=== PATIENT | male | born 1955 | race Caucasian/White ===

== ENCOUNTER 2017-07-04 10:58 | Inpatient (IN) | payer BC ==
[2017-07-04] MEDS ORDERED: Sodium Chloride 0.9% 10 ML Syringe FLUSH PRN ×3 (12:25→17:36)
[2017-07-04] MEDS ORDERED: Ondansetron 4 MG/2 ML SDV IVPUSH ONE (12:27)
[2017-07-04] MEDS ORDERED: Sodium Chloride 0.9% 1,000 ML IV SCH ×2 (12:30→16:15)
--- NOTE | 2017-07-04 12:30 | EDM.PDOC ---
ED HPI GENERAL MEDICAL PROBLEM - General Chief Complaint: Respiratory Problem Stated Complaint: ILLNESS; FEVER; COUGH Time Seen by Provider: 07/04/17 12:10 Source of Information: Reports: Patient, Family History Limitations: Reports: No Limitations - History of Present Illness INITIAL COMMENTS - FREE TEXT/NARRATIVE: Benito presents today with complaints of weakness, nausea, joint pain, cough, SOB with cough since April of this year. He also reports a sore to his left chest that will not go away for many months and continues to worsen. 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 He reports he went into an urgent care clinic and was provided Azithromycin on . He later went into another clinic for continued symptoms and was given Levaquin and prednisone on 05/30/2017. He took medications as directed, completing doses. Benito does not have a primary care provider. Generalized Pain Score (Numeric/FACES): 7 - Related Data Allergies Allergy/AdvReac Type Severity Reaction Status Date / Time No Known Allergies Allergy Verified 07/04/17 11:26 Past Medical History HEENT History: Reports: Allergic Rhinitis, Macular Degeneration - Past Surgical History HEENT Surgical History: Reports: Tonsillectomy Other GI Surgeries/Procedures: HEMORRHOIDS, ANAL FISTULA, CROHN'S Other Musculoskeletal Surgeries/Procedures:: Rhizotomy x 4 to back. Social & Family History - Tobacco Use Smoking Status *Q: Current Every Day Smoker Years of Tobacco use: 20 Packs/Tins Daily: 1 ED ROS GENERAL - Review of Systems Review Of Systems: See Below Constitutional: Reports: Chills, Malaise, Weakness, Fatigue, Decreased Appetite , Weight Loss. Denies: Night Sweats, Diaphoresis, Weight Gain HEENT: Reports: Other (sinus congestion). Denies: Ear Pain, Throat Pain Respiratory: Reports: Wheezing, Cough, Sputum, Other (Shortness of breath with cough. ). Denies: Pleuritic Chest Pain, Hemoptysis Cardiovascular: Reports: Dyspnea on Exertion. Denies: Chest Pain, Blood Pressure Problem, Edema, Lightheadedness, Palpitations, PND, Syncope Endocrine: Reports: Fatigue. Denies: Polydypsia, Polyuria GI/Abdominal: Reports: Decreased Appetite, Nausea. Denies: Black Stool, Bloody Stool, Hematemesis, Hematochezia, Vomiting : Reports: No Symptoms Musculoskeletal: Reports: Joint Pain. Denies: Joint Swelling Skin: Reports: Other (Non-healing lesion to upper left chest. ) Neurological: Reports: Weakness. Denies: Headache, Numbness, Paresthesia, Syncope, Tingling, Trouble Speaking, Difficulty Walking, Gait Disturbance Psychiatric: Reports: No Symptoms Hematologic/Lymphatic: Reports: No Symptoms Immunologic: Reports: No Symptoms ED EXAM, GENERAL - Physical Exam Exam: See Below Free Text/Narrative:: Benito is an alert, oriented 62 year old male presenting to the emergency room for continued cough, frothy/white and sometimes green mucus production. He reports SOB with cough with overall weakness, fatigue since April with worsening. Benito also reports non-healing sore to upper left chest for several months. He does use 1ppd cigarettes, denies alcohol and illicit drug use. Exam Limited By: No Limitations General Appearance: Alert, WD/WN, Mild Distress, Cachetic Eye Exam: Bilateral Eye: EOMI, Normal Inspection, PERRL Ears: Normal External Exam, Normal Canal, Hearing Grossly Normal, Normal TMs Ear Exam: Bilateral Ear: Auricle Normal, Canal Normal, TM normal Nose: Normal Inspection, Normal Mucosa, No Blood Throat/Mouth: Normal Inspection, Normal Lips, Normal Gums, Normal Oropharynx, Normal Voice, No Airway Compromise, Other (Slight dryness of mucous membranes) Head: Atraumatic, Normocephalic Neck: Normal Inspection, Supple, Non-Tender, Full Range of Motion. No: Lymphadenopathy (R), Lymphadenopathy (L) Respiratory/Chest: Decreased Breath Sounds, Crackles, Rhonchi, Wheezing. No: Chest Non-Tender, Respiratory Distress, Stridor, Pleural Rub, Accessory Muscle Use, Retractions Cardiovascular: Normal Peripheral Pulses, Regular Rate, Rhythm, No Edema, No Gallop, No Murmur, No Rub Peripheral Pulses: 2+: Radial (L), Radial (R), Dorsalis Pedis (L), Dorsalis Pedis (R) GI/Abdominal: Normal Bowel Sounds, Soft, Non-Tender, No Organomegaly, No Distention, No Mass Back Exam: Normal Inspection, Full Range of Motion. No: CVA Tenderness (R), CVA Tenderness (L) Extremities: Normal Inspection, Normal Range of Motion, Non-Tender, No Pedal Edema, Normal Capillary Refill Neurological: Alert, Oriented, CN II-XII Intact, Normal Cognition, Normal Gait, Normal Reflexes, No Motor/Sensory Deficits Psychiatric: Normal Affect, Normal Mood Skin Exam: Warm, Dry, Intact, Normal Color, Other (With exception of circular lesion to left upper chest with uneven presentation 1.5cm by 2.5 cm oval in shape. Lesion has intermittent spots of bleeding, with defined border. Base of lesion is flesh colored and uneven with raised edge. ) Lymphatic: No Adenopathy EKG INTERPRETATION EKG Date: 07/04/17 Time: 12:44 Rhythm: NSR Wald[place]: Normal P-Wave: Present QRS: Normal ST-T: Normal QT: Normal Course - Vital Signs Last Recorded V/S: Last Vital Signs Temp 37.2 C 07/04/17 15:44 Pulse 62 07/04/17 15:44 Resp 15 07/04/17 15:44 BP 108/70 07/04/17 15:44 Pulse Ox 93 L 07/04/17 15:44 - Orders/Labs/Meds Orders: Active Orders 24 hr Category Date Time Status EKG Documentation Completion [RC] ASDIRECTED Care 07/04/17 12:26 Active Chest 2V [CR] Stat Exams 07/04/17 12:25 Taken Chest w Cont [CT] Stat Exams 07/04/17 13:56 Taken CULTURE BLOOD [BC] Stat Lab 07/04/17 15:55 Received CULTURE BLOOD [BC] Stat Lab 07/04/17 16:08 Received CULTURE FUNGAL [MYC] Stat Lab 07/04/17 16:11 Received CULTURE RESPIRATORY + SMEAR [RM] Stat Lab 07/04/17 15:50 Received CULTURE URINE [RM] Stat Lab 07/04/17 15:59 Received CULTURE-AFB [MREF] Stat Lab 07/04/17 16:11 Received Sodium Chloride 0.9% [Normal Saline] 1,000 ml Med 07/04/17 12:30 Active IV ASDIRECTED Sodium Chloride 0.9% [Normal Saline] 1,000 ml Med 07/04/17 16:15 Active IV ASDIRECTED Sodium Chloride 0.9% [Saline Flush] Med 07/04/17 12:25 Active 10 ml FLUSH ASDIRECTED PRN Saline Lock Insert [OM.PC] Routine Oth 07/04/17 12:25 Ordered EKG 12 Lead [EK] Routine Ther 07/04/17 12:25 Ordered Medication Orders Sodium Chloride (Normal Saline) 1,000 mls @ 500 mls/hr IV ASDIRECTED MICHAEL Last Admin: 07/04/17 12:55 Dose: 500 mls/hr Sodium Chloride (Normal Saline) 1,000 mls @ 250 mls/hr IV ASDIRECTED MICHAEL Last Admin: 07/04/17 16:02 Dose: 250 mls/hr Sodium Chloride (Saline Flush) 10 ml FLUSH ASDIRECTED PRN PRN Reason: Keep Vein Open Last Admin: 07/04/17 12:56 Dose: 10 ml Labs: Laboratory Tests 07/04/17 07/04/17 07/04/17 Range/Units 12:35 12:35 12:35 WBC 14.5 H (4.5-11.0) K/uL RBC 4.20 L (4.30-5.90) M/uL Hgb 12.7 (12.0-15.0) g/dL Hct 37.9 L (40.0-54.0) % MCV 90 (80-98) fL MCH 30 (27-31) pg MCHC 34 (32-36) % Plt Count 330 (150-400) K/uL Neut % (Auto) 83 H (36-66) % Lymph % (Auto) 8 L (24-44) % Gray % (Auto) 9 H (2-6) % Eos % (Auto) 0 L (2-4) % Baso % (Auto) 0 (0-1) % ESR 97 H (0-20) mm/hr Sodium 137 L (140-148) mmol/L Potassium 4.1 (3.6-5.2) mmol/L Chloride 100 (100-108) mmol/L Carbon Dioxide 27 (21-32) mmol/L Anion Gap 14.1 H (5.0-14.0) mmol/L BUN 11 (7-18) mg/dL Creatinine 0.8 (0.8-1.3) mg/dL Est Cr Clr Drug Dosing 93.99 mL/min Estimated GFR (MDRD) > 60 (>60) Glucose 105 (74-106) mg/dL Calcium 8.5 (8.5-10.1) mg/dL Total Bilirubin 0.9 (0.2-1.0) mg/dL AST 49 H (15-37) U/L ALT 61 (12-78) U/L Alkaline Phosphatase 107 (46-116) U/L Troponin I < 0.017 (0.000-0.056) ng/mL C-Reactive Protein 23.81 H (0.0-0.3) mg/dL NT-Pro-B Natriuret Pep 288 H (5-125) pg/mL Total Protein 6.6 (6.4-8.2) g/dL Albumin 2.5 L (3.4-5.0) g/dL Globulin 4.1 H (2.3-3.5) g/dL Albumin/Globulin Ratio 0.6 L (1.2-2.2) TSH, Ultra Sensitive (0.358-3.740) uIU/mL Urine Color Urine Appearance Urine pH (4.5-8.0) Ur Specific [place] (1.008-1.030) Urine Protein (NEGATIVE) mg/dL Urine Glucose (UA) (NEGATIVE) mg/dL Urine Ketones (NEGATIVE) mg/dL Urine Occult Blood (NEGATIVE) Urine Nitrite (NEGAITVE) Urine Bilirubin (NEGATIVE) Urine Urobilinogen (NORMAL) mg/dL Ur Leukocyte Esterase (NEGATIVE) Urine RBC (0-5) Urine WBC (0-5) Ur Epithelial Cells Amorphous Sediment Urine Bacteria Urine Mucus 07/04/17 07/04/17 Range/Units 12:35 13:53 WBC (4.5-11.0) K/uL RBC (4.30-5.90) M/uL Hgb (12.0-15.0) g/dL Hct (40.0-54.0) % MCV (80-98) fL MCH (27-31) pg MCHC (32-36) % Plt Count (150-400) K/uL Neut % (Auto) (36-66) % Lymph % (Auto) (24-44) % Gray % (Auto) (2-6) % Eos % (Auto) (2-4) % Baso % (Auto) (0-1) % ESR (0-20) mm/hr Sodium (140-148) mmol/L Potassium (3.6-5.2) mmol/L Chloride (100-108) mmol/L Carbon Dioxide (21-32) mmol/L Anion Gap (5.0-14.0) mmol/L BUN (7-18) mg/dL Creatinine (0.8-1.3) mg/dL Est Cr Clr Drug Dosing mL/min Estimated GFR (MDRD) (>60) Glucose (74-106) mg/dL Calcium (8.5-10.1) mg/dL Total Bilirubin (0.2-1.0) mg/dL AST (15-37) U/L ALT (12-78) U/L Alkaline Phosphatase (46-116) U/L Troponin I (0.000-0.056) ng/mL C-Reactive Protein (0.0-0.3) mg/dL NT-Pro-B Natriuret Pep (5-125) pg/mL Total Protein (6.4-8.2) g/dL Albumin (3.4-5.0) g/dL Globulin (2.3-3.5) g/dL Albumin/Globulin Ratio (1.2-2.2) TSH, Ultra Sensitive 1.119 (0.358-3.740) uIU/mL Urine Color Yellow Urine Appearance Clear Urine pH 5.0 (4.5-8.0) Ur Specific [place] 1.015 (1.008-1.030) Urine Protein Negative (NEGATIVE) mg/dL Urine Glucose (UA) Normal (NEGATIVE) mg/dL Urine Ketones 15 H (NEGATIVE) mg/dL Urine Occult Blood Trace (NEGATIVE) Urine Nitrite Negative (NEGAITVE) Urine Bilirubin Negative (NEGATIVE) Urine Urobilinogen Normal (NORMAL) mg/dL Ur Leukocyte Esterase Negative (NEGATIVE) Urine RBC 0-5 (0-5) Urine WBC 0-5 (0-5) Ur Epithelial Cells Few Amorphous Sediment Not seen Urine Bacteria Not seen Urine Mucus Not seen Lab work and chest x-ray reviewed with Dr. Nguyen, will complete chest CT. Meds: Medications Generic Name Dose Route Start Last Admin Trade Name Freq PRN Reason Stop Dose Admin Sodium Chloride 1,000 mls @ 500 mls/hr 07/04/17 12:30 07/04/17 12:55 Normal Saline IV 500 mls/hr ASDIRECTED MICHAEL Administration Sodium Chloride 1,000 mls @ 250 mls/hr 07/04/17 16:15 07/04/17 16:02 Normal Saline IV 250 mls/hr ASDIRECTED MICHAEL Administration Sodium Chloride 10 ml 11/05/17 12:25 07/04/17 12:56 Saline Flush FLUSH 10 ml ASDIRECTED PRN Administration Keep Vein Open Discontinued Medications Generic Name Dose Route Start Last Admin Trade Name Jagdish PRN Reason Stop Dose Admin Sodium Chloride 75 mls @ 3 mls/sec 07/04/17 14:30 07/04/17 14:36 Normal Saline IV 07/04/17 15:00 3 mls/sec ASDIRECTED MICHAEL Administration Iopamidol 100 ml 07/04/17 14:22 07/04/17 14:36 Isovue-300 (61%) IV 07/04/17 15:00 100 ml . DIRECTED PRN Administration RADIOLOGY EXAM Ondansetron HCl 4 mg 07/04/17 12:27 07/04/17 12:55 Zofran IVPUSH 07/04/17 12:28 4 mg ONETIME ONE Administration Sodium Chloride 10 ml 07/04/17 14:22 07/04/17 14:34 Saline Flush FLUSH 07/04/17 15:00 10 ml ONETIME PRN Administration per radiology protocol - Re-Assessments/Exams Free Text/Narrative Re-Assessment/Exam: 07/04/17 13:41 Patient lab work and chest x-ray reviewed with patient and his in detail. We will complete a chest CT. They are in agreement with plan. 07/04/17 15:[address] of chest with contrast report: LLL pneumonia Noted Consolidation and patchy infiltrates bilateral lungs Pulmonary emphysema changes No PE Patient notified, Dr. Strange notified of patient status, CT results. Patient will be admitted for atypical pneumonia. 07/04/17 16:02 Will obtain blood, urine and sputum cultures. Departure - Departure Time of Disposition: 16:13 Disposition: Admitted As Inpatient 65 Condition: Poor Clinical Impression: Chest skin lesion, Elevated erythrocyte sedimentation rate, Elevated C- reactive protein (CRP), Left lower lobe pneumonia - Discharge Information Referrals: PCP,None [Primary Care Provider] - Forms: ED Department Discharge - My Orders Last 24 Hours: My Active Orders 07/04/17 12:25 Chest 2V [CR] Stat Sodium Chloride 0.9% [Saline Flush] 10 ml FLUSH ASDIRECTED PRN Saline Lock Insert [OM.PC] Routine EKG 12 Lead [EK] Routine 07/04/17 12:26 EKG Documentation Completion [RC] ASDIRECTED 07/04/17 12:30 Sodium Chloride 0.9% [Normal Saline] 1,000 ml IV ASDIRECTED 07/04/17 13:56 Chest w Cont [CT] Stat 07/04/17 15:50 CULTURE RESPIRATORY + SMEAR [RM] Stat 07/04/17 15:55 CULTURE BLOOD [BC] Stat 07/04/17 15:59 CULTURE URINE [RM] Stat 07/04/17 16:08 CULTURE BLOOD [BC] Stat 07/04/17 16:11 CULTURE FUNGAL [MYC] Stat CULTURE-AFB [MREF] Stat 07/04/17 16:15 Sodium Chloride 0.9% [Normal Saline] 1,000 ml IV ASDIRECTED - Assessment/Plan Last 24 Hours: My Active Orders 07/04/17 12:25 Chest 2V [CR] Stat Sodium Chloride 0.9% [Saline Flush] 10 ml FLUSH ASDIRECTED PRN Saline Lock Insert [OM.PC] Routine EKG 12 Lead [EK] Routine 07/04/17 12:26 EKG Documentation Completion [RC] ASDIRECTED 07/04/17 12:30 Sodium Chloride 0.9% [Normal Saline] 1,000 ml IV ASDIRECTED 07/04/17 13:56 Chest w Cont [CT] Stat 07/04/17 15:50 CULTURE RESPIRATORY + SMEAR [RM] Stat 07/04/17 15:55 CULTURE BLOOD [BC] Stat 07/04/17 15:59 CULTURE URINE [RM] Stat 07/04/17 16:08 CULTURE BLOOD [BC] Stat 07/04/17 16:11 CULTURE FUNGAL [MYC] Stat CULTURE-AFB [MREF] Stat 07/04/17 16:15 Sodium Chloride 0.9% [Normal Saline] 1,000 ml IV ASDIRECTED Assessment:: Atypical pneumonia LLL, Chest skin lesion, Elevated erythrocyte sedimentation rate, Elevated C-reactive protein (CRP) Plan: Patient will be admitted per Dr. Strange. Benito was instructed to make an appointment with a local health care provider to establish care and to follow up with for continued medical care.
[2017-07-04] MEDS ORDERED: Iopamidol 612 MG/ML 100 ML Bottle IV PRN (14:22)
[2017-07-04] MEDS ORDERED: Sodium Chloride 0.9% 75 ML IV SCH (14:30)
--- NOTE | 2017-07-04 16:56 | PCM.HP ---
H&P History of Present Illness - General Date of Service: 07/04/17 Admit Problem/Dx: Admission Diagnosis/Problem Admission Diagnosis/Problem Pneumonia Source of Information: Patient, Provider, RN Notes Reviewed History Limitations: Reports: No Limitations - History of Present Illness Initial Comments - Free Text/Narative: Mr. Stephen is a 62-year-old gentleman who is admitted through the emergency department for management of pneumonia. He's not felt well for the past 2-1/2 months, initially developed nasal congestion and cough in March, symptoms worsened so he presented to urgent care for further evaluation and treatment. At that time he was placed on a course of azithromycin. When he completed the course of antibiotic therapy felt fairly well although his symptoms were not entirely resolved. Shortly after completing the course antibiotics he noted progressive worsening of symptoms. On 30 May he presented to urgent care again and on evaluation was started on levofloxacin and prednisone. Again with these interventions he felt fairly well although did not entirely returned to baseline. Since then he's had recurrence of symptoms in this past week has felt much worse. Now he is developed fever, chills, and sweats with marked fatigue and weakness. Cough is productive of colored sputum, he has been only minimally short of breath except when coughing. He's had difficulty sleeping because of coughing and his appetite has been diminished. Evaluation in the emergency department shows a moderate elevation in white blood cell count. CT scan of the chest shows evidence of a left lung infiltrate. Generalized Pain Score (Numeric/FACES): 7 - Related Data Allergies/Adverse Reactions: Allergies Allergy/AdvReac Type Severity Reaction Status Date / Time No Known Allergies Allergy Verified 07/04/17 11:26 Past Medical History HEENT History: Reports: Allergic Rhinitis, Macular Degeneration - Past Surgical History HEENT Surgical History: Reports: Tonsillectomy Other GI Surgeries/Procedures: HEMORRHOIDS, ANAL FISTULA, CROHN'S Other Musculoskeletal Surgeries/Procedures:: Rhizotomy x 4 to back. Social & Family History - Tobacco Use Smoking Status *Q: Current Every Day Smoker Years of Tobacco use: 20 Packs/Tins Daily: 1 H&P Review of Systems - Review of Systems: Review Of Systems: See Below General: Reports: Fever, Chills, Weakness, Fatigue, Diaphoresis, Decreased Appetite HEENT: Reports: No Symptoms Pulmonary: Reports: Shortness of Breath, Wheezing, Cough, Sputum. Denies: Pleuritic Chest Pain, Hemoptysis Cardiovascular: Denies: Chest Pain, Palpitations, Dyspnea on Exertion, Orthopnea , PND, Edema, Lightheadedness Gastrointestinal: Reports: No Symptoms Genitourinary: Reports: No Symptoms Musculoskeletal: Reports: No Symptoms Skin: Reports: No Symptoms Psychiatric: Reports: No Symptoms Neurological: Reports: No Symptoms Hematologic/Lymphatic: Reports: No Symptoms Immunologic: Reports: No Symptoms Exam - Exam Exam: See Below - Vital Signs Vital Signs: Last Vital Signs Temp 98.6 F 07/04/17 16:53 Pulse 62 07/04/17 15:44 Resp 15 07/04/17 16:53 BP 115/65 07/04/17 16:53 Pulse Ox 94 L 07/04/17 16:53 Weight: 155 lb - Exam Quality Assessment: DVT Prophylaxis General: Alert, Oriented, Cooperative, Mild Distress HEENT: Conjunctiva Clear, Hearing Intact, Mucosa Moist & [place], Normal Nasal Septum, Posterior Pharynx Clear, Pupils Equal Neck: Supple, Trachea Midline, +2 Carotid Pulse wo Bruit Lungs: Normal Respiratory Effort, Decreased Breath Sounds, Rhonchi, Wheezing. No: Crackles, Rales, Rub, Stridor Cardiovascular: Regular Rate, Regular Rhythm, Normal S1, Normal S2. No: Irregular Rhythm, Bradycardia, Tachycardia, Systolic Murmur, Diastolic Murmur GI/Abdominal Exam: Normal Bowel Sounds, Soft, Non-Tender, No Organomegaly, No Distention Back Exam: Normal Inspection, Full Range of Motion Extremities: Non-Tender, No Pedal Edema Skin: Warm, Dry, Wound (Ulcerated lesion on the left upper chest) Neurological: Cranial Nerves Intact, Strength Equal Bilateral, Normal Speech, Normal Tone, Sensation Intact. No: Focal Deficit Neuro Extensive - Mental Status: Alert, Oriented x3, Normal Mood/Affect, Normal Cognition, Memory Intact - Patient Data Lab Results Last 24 hrs: Laboratory Results - last 24 hr 07/04/17 07/04/17 07/04/17 Range/Units 12:35 12:35 12:35 WBC 14.5 H (4.5-11.0) K/uL RBC 4.20 L (4.30-5.90) M/uL Hgb 12.7 (12.0-15.0) g/dL Hct 37.9 L (40.0-54.0) % MCV 90 (80-98) fL MCH 30 (27-31) pg MCHC 34 (32-36) % Plt Count 330 (150-400) K/uL Neut % (Auto) 83 H (36-66) % Lymph % (Auto) 8 L (24-44) % [place] % (Auto) 9 H (2-6) % Eos % (Auto) 0 L (2-4) % Baso % (Auto) 0 (0-1) % ESR 97 H (0-20) mm/hr Sodium 137 L (140-148) mmol/L Potassium 4.1 (3.6-5.2) mmol/L Chloride 100 (100-108) mmol/L Carbon Dioxide 27 (21-32) mmol/L Anion Gap 14.1 H (5.0-14.0) mmol/L BUN 11 (7-18) mg/dL Creatinine 0.8 (0.8-1.3) mg/dL Est Cr Clr Drug Dosing 93.99 mL/min Estimated GFR (MDRD) > 60 (>60) Glucose 105 (74-106) mg/dL Calcium 8.5 (8.5-10.1) mg/dL Total Bilirubin 0.9 (0.2-1.0) mg/dL AST 49 H (15-37) U/L ALT 61 (12-78) U/L Alkaline Phosphatase 107 (46-116) U/L Troponin I < 0.017 (0.000-0.056) ng/mL C-Reactive Protein 23.81 H (0.0-0.3) mg/dL NT-Pro-B Natriuret Pep 288 H (5-125) pg/mL Total Protein 6.6 (6.4-8.2) g/dL Albumin 2.5 L (3.4-5.0) g/dL Globulin 4.1 H (2.3-3.5) g/dL Albumin/Globulin Ratio 0.6 L (1.2-2.2) TSH, Ultra Sensitive (0.358-3.740) uIU/mL Urine Color Urine Appearance Urine pH (4.5-8.0) Ur Specific [place] (1.008-1.030) Urine Protein (NEGATIVE) mg/dL Urine Glucose (UA) (NEGATIVE) mg/dL Urine Ketones (NEGATIVE) mg/dL Urine Occult Blood (NEGATIVE) Urine Nitrite (NEGAITVE) Urine Bilirubin (NEGATIVE) Urine Urobilinogen (NORMAL) mg/dL Ur Leukocyte Esterase (NEGATIVE) Urine RBC (0-5) Urine WBC (0-5) Ur Epithelial Cells Amorphous Sediment Urine Bacteria Urine Mucus 07/04/17 07/04/17 Range/Units 12:35 13:53 WBC (4.5-11.0) K/uL RBC (4.30-5.90) M/uL Hgb (12.0-15.0) g/dL Hct (40.0-54.0) % MCV (80-98) fL MCH (27-31) pg MCHC (32-36) % Plt Count (150-400) K/uL Neut % (Auto) (36-66) % Lymph % (Auto) (24-44) % [place] % (Auto) (2-6) % Eos % (Auto) (2-4) % Baso % (Auto) (0-1) % ESR (0-20) mm/hr Sodium (140-148) mmol/L Potassium (3.6-5.2) mmol/L Chloride (100-108) mmol/L Carbon Dioxide (21-32) mmol/L Anion Gap (5.0-14.0) mmol/L BUN (7-18) mg/dL Creatinine (0.8-1.3) mg/dL Est Cr Clr Drug Dosing mL/min Estimated GFR (MDRD) (>60) Glucose (74-106) mg/dL Calcium (8.5-10.1) mg/dL Total Bilirubin (0.2-1.0) mg/dL AST (15-37) U/L ALT (12-78) U/L Alkaline Phosphatase (46-116) U/L Troponin I (0.000-0.056) ng/mL C-Reactive Protein (0.0-0.3) mg/dL NT-Pro-B Natriuret Pep (5-125) pg/mL Total Protein (6.4-8.2) g/dL Albumin (3.4-5.0) g/dL Globulin (2.3-3.5) g/dL Albumin/Globulin Ratio (1.2-2.2) TSH, Ultra Sensitive 1.119 (0.358-3.740) uIU/mL Urine Color Yellow Urine Appearance Clear Urine pH 5.0 (4.5-8.0) Ur Specific [place] 1.015 (1.008-1.030) Urine Protein Negative (NEGATIVE) mg/dL Urine Glucose (UA) Normal (NEGATIVE) mg/dL Urine Ketones 15 H (NEGATIVE) mg/dL Urine Occult Blood Trace (NEGATIVE) Urine Nitrite Negative (NEGAITVE) Urine Bilirubin Negative (NEGATIVE) Urine Urobilinogen Normal (NORMAL) mg/dL Ur Leukocyte Esterase Negative (NEGATIVE) Urine RBC 0-5 (0-5) Urine WBC 0-5 (0-5) Ur Epithelial Cells Few Amorphous Sediment Not seen Urine Bacteria Not seen Urine Mucus Not seen Result Diagrams: 07/04/17 12:35 07/04/17 12:35 Chriss Results Last 24 hrs: Microbiology 07/04/17 13:04 Influenza Type A Antigen Screen - Final Nasopharyngeal Swab - Nare, Left NEGATIVE INFLUENZA A VIRUS AG Influenza Type B Antigen Screen - Final NEGATIVE INFLUENZA B VIRUS AG *Q Meaningful Use (ADM) - VTE *Q VTE Criteria *Q: - VTE Risk Assess *Q Each Risk Factor Represents 1 Point: Serious lung disease including pneumonia, Abnormal Pulmonary Function (COPD) Total Score 1 Point Risk Factors: 2 Each Risk Factor Represents 2 Points: Age 60 - 74 Years Total Score 2 Point Risk Factors: 2 Each Risk Factor Represents 3 Points: None Total Score 3 Point Risk Factors: 0 Each Risk Factor Represents 5 Points: None Total Score 5 Point Risk Factors: 0 Venous Thromboembolism Risk Factor Score *Q: 4 - Stroke *Q Stroke Criteria *Q: - AMI *Q AMI Criteria *Q: Problem List Initiated/Reviewed/Updated: Yes Orders Last 24hrs: Active Orders 24 hr Category Date Time Status Patient Status Manage Transfer [TRANSFER] Routine ADT 07/04/17 16:47 Ordered EKG Documentation Completion [RC] ASDIRECTED Care 07/04/17 12:26 Active Chest 2V [CR] Stat Exams 07/04/17 12:25 Taken Chest w Cont [CT] Stat Exams 07/04/17 13:56 Taken CULTURE BLOOD [BC] Stat Lab 07/04/17 15:55 Received CULTURE BLOOD [BC] Stat Lab 07/04/17 16:08 Received CULTURE FUNGAL [MYC] Stat Lab 07/04/17 16:11 Received CULTURE RESPIRATORY + SMEAR [RM] Stat Lab 07/04/17 15:50 Received CULTURE URINE [RM] Stat Lab 07/04/17 15:59 Received CULTURE-AFB [MREF] Stat Lab 07/04/17 16:11 Received Sodium Chloride 0.9% [Normal Saline] 1,000 ml Med 07/04/17 12:30 Active IV ASDIRECTED Sodium Chloride 0.9% [Normal Saline] 1,000 ml Med 07/04/17 16:15 Active IV ASDIRECTED Sodium Chloride 0.9% [Saline Flush] Med 07/04/17 12:25 Active 10 ml FLUSH ASDIRECTED PRN Saline Lock Insert [OM.PC] Routine Oth 07/04/17 12:25 Ordered Resuscitation Status Routine Resus Stat 07/04/17 16:48 Ordered EKG 12 Lead [EK] Routine Ther 07/04/17 12:25 Ordered Medication Orders Sodium Chloride (Normal Saline) 1,000 mls @ 500 mls/hr IV ASDIRECTED MICHAEL Last Admin: 07/04/17 12:55 Dose: 500 mls/hr Sodium Chloride (Normal Saline) 1,000 mls @ 250 mls/hr IV ASDIRECTED MICHAEL Last Admin: 07/04/17 16:02 Dose: 250 mls/hr Sodium Chloride (Saline Flush) 10 ml FLUSH ASDIRECTED PRN PRN Reason: Keep Vein Open Last Admin: 07/04/17 12:56 Dose: 10 ml Assessment/Plan Comment:: ASSESSMENT AND PLAN LEFT LUNG PNEUMONIA-in the setting of prolonged intermittent respiratory tract infection over the past 2-1/2 months. He has received 2 courses of antibiotics during that time as well as a course of prednisone. CT scan shows evidence of underlying COPD. -Blood and sputum cultures pending -Solu-Medrol 40 mg IV every 6 hours -Nebulized albuterol and duo nebs -Expanded IV antibiotic coverage; IV azithromycin and levofloxacin, pending culture results ENVIRONMENTAL ALLERGIES-history of nasal congestion over the past 2-1/2 months -Zyrtec 10 mg by mouth daily -Nasacort 2 sprays each nostril twice daily CHRONIC SINUS INFECTION-he's had ongoing difficulty with pressure and low-grade headaches, suspect infection secondary to ongoing congestion -Will likely require longer course of oral antibiotic therapy SKIN LESION LEFT UPPER CHEST-suspicious for skin cancer versus chronic infection -Consult Dr. Bermudez for surgical opinion and probable resection NICOTINE [id number]-qhdo-year smoking history, I did genetic counselor him today concerning the importance of smoking cessation especially in light of findings of probable COPD on CT scan -Nicotine patch MAINTENANCE ISSUES -DVT prophylaxis; Lovenox 30 mg subcutaneous daily -GI prophylaxis; not indicated -White catheter; not indicated -Nutrition; regular diet -Nicotine dependence; patch as above CODE STATUS-FULL CODE ADMISSION STATUS-patient will be admitted to inpatient status, expect at least a 2 night hospital stay for evaluation and management of problems as outlined above. At the time of this admission I do not reasonably expected evaluation and management of this problem will require more than a 96 hour hospital stay. DISPOSITION-anticipate discharge to home after the hospital stay. PRIMARY CARE PROVIDER-currently does not have a primary care provider
[2017-07-04] MEDS ORDERED: Zolpidem 5 MG Tab PO PRN (17:36)
[2017-07-04] MEDS ORDERED: oxyCODONE 5 MG Tab PO PRN (17:36)
[2017-07-04] MEDS ORDERED: Docusate Sodium 100 MG Cap PO PRN (17:36)
[2017-07-04] MEDS ORDERED: Ondansetron 4 MG/2 ML SDV IV PRN (17:36)
[2017-07-04] MEDS ORDERED: Albuterol 0.083% 2.5 MG/3 ML Neb Soln NEB PRN (17:36)
[2017-07-04] MEDS ORDERED: Magnesium Hydroxide 400 MG/5 ML Susp 30 ML Cup PO PRN (17:36)
[2017-07-04] MEDS ORDERED: Polyethylene Glycol 3350 Powder 17 GM Packet PO PRN (17:36)
[2017-07-04] MEDS ORDERED: Acetaminophen 325 MG Tab PO PRN (17:36)
[2017-07-04] MEDS: methylPREDNISolone Sodium Succinate 40 MG/1 ML SDV IVPUSH SCH (18:16)
[2017-07-04] MEDS: Enoxaparin 40 MG/0.4 ML Syringe SUBCUT SCH (18:17)
[2017-07-04] MEDS: Levofloxacin/Dextrose 5%-Water 750 MG in Premix Bag 1 BAG IV SCH (18:20)
[2017-07-04] MEDS: Nicotine 14 MG/24 Hr Patch TRDERM SCH (20:27)
[2017-07-04] MEDS: Cetirizine 10 MG Tab PO SCH (20:27)
[2017-07-04] MEDS: Mometasone Furoate Nasal Spray 17 GM Canister NAS SCH ×2 (20:28→21:05)
[2017-07-04] MEDS: Piperacillin/Tazobactam 3.375 GM in Sodium Chloride 0.9% 50 ML IV SCH (21:02)
[2017-07-04] MEDS: Albuterol/Ipratropium 3.0-0.5 MG/3 ML Neb Soln NEB SCH (21:25)
[2017-07-04] MEDS: Sodium Chloride 0.9% 1,000 ML IV SCH (21:40)
[2017-07-04] MEDS ORDERED: Pneumococcal Polyvalent-23 Vaccine 0.5 ML SDV IM ONE (21:56)
[2017-07-05] MEDS: methylPREDNISolone Sodium Succinate 40 MG/1 ML SDV IVPUSH SCH ×3 (01:27→17:50)
[2017-07-05] MEDS: Piperacillin/Tazobactam 3.375 GM in Sodium Chloride 0.9% 50 ML IV SCH ×2 (01:29→05:30)
[2017-07-05] MEDS: Sodium Chloride 0.9% 1,000 ML IV SCH (05:30)
[2017-07-05] MEDS: Albuterol/Ipratropium 3.0-0.5 MG/3 ML Neb Soln NEB SCH ×4 (07:05→20:22)
--- NOTE | 2017-07-05 08:28 | CR ---
Chest 2V INDICATION: SOB cough FINDINGS: Patchy infiltrate in the left lower lobe consistent with pneumonia. Hypertrophic change rig ht AC joint. Chest otherwise negative. Follow-up PA and lateral chest x-ray in 4-6 weeks recommended.
[2017-07-05] MEDS: Mometasone Furoate Nasal Spray 17 GM Canister NAS SCH ×2 (09:22→20:14)
[2017-07-05] MEDS: Nicotine 14 MG/24 Hr Patch TRDERM SCH (09:23)
[2017-07-05] MEDS: Cetirizine 10 MG Tab PO SCH (09:24)
--- NOTE | 2017-07-05 09:48 | PCM.PN ---
- General Info Date of Service: 07/05/17 Subjective Update: Mr. Stephen has been stable since admission yesterday, reports less shortness of breath and cough. He did have some sweats during the night, but temperature has remained within normal range and he has had stable vital signs. Functional Status: Reports: Pain Controlled, Tolerating Diet, Ambulating - Review of Systems General: Reports: Weakness. Denies: Fever, Chills Pulmonary: Reports: Shortness of Breath, Cough, Sputum, Wheezing. Denies: Pleuritic Chest Pain, Hemoptysis Cardiovascular: Reports: Dyspnea on Exertion. Denies: Chest Pain, Palpitations , Orthopnea, PND, Edema, Lightheadedness Gastrointestinal: Reports: No Symptoms - Patient Data Vitals - Most Recent: Last Vital Signs Temp 96.1 F 07/05/17 07:00 Pulse 68 07/05/17 07:05 Resp 16 07/05/17 07:00 BP 126/67 07/05/17 07:00 Pulse Ox 94 L 07/05/17 07:00 Weight - Most Recent: 143 lb 1.6 oz I&O - Last 24 Hours: Intake & Output 07/04/17 07/05/17 07/05/17 22:59 06:59 14:59 Intake Total 1700 200 Balance 1700 200 Lab Results Last 24 Hours: Laboratory Results - last 24 hr 07/05/17 07/05/17 Range/Units 05:45 05:45 WBC 8.3 (4.5-11.0) K/uL RBC 4.19 L (4.30-5.90) M/uL Hgb 12.4 (12.0-15.0) g/dL Hct 38.3 L (40.0-54.0) % MCV 91 (80-98) fL MCH 30 (27-31) pg MCHC 32 (32-36) % Plt Count 334 (150-400) K/uL Neut % (Auto) 90 H (36-66) % Lymph % (Auto) 7 L (24-44) % [place] % (Auto) 2 (2-6) % Eos % (Auto) 0 L (2-4) % Baso % (Auto) 0 (0-1) % Sodium 142 (140-148) mmol/L Potassium 4.3 (3.6-5.2) mmol/L Chloride 107 (100-108) mmol/L Carbon Dioxide 29 (21-32) mmol/L Anion Gap 5.8 (5.0-14.0) mmol/L BUN 9 (7-18) mg/dL Creatinine 0.7 L (0.8-1.3) mg/dL Est Cr Clr Drug Dosing 99.17 mL/min Estimated GFR (MDRD) > 60 (>60) Glucose 151 H (74-106) mg/dL Calcium 8.4 L (8.5-10.1) mg/dL Magnesium 2.0 (1.8-2.4) mg/dL Med Orders - Current: Current Medications Acetaminophen (Tylenol) 650 mg PO Q4H PRN PRN Reason: Pain (Mild 1-3)/fever Albuterol (Proventil Neb Soln) 2.5 mg NEB Q4H PRN PRN Reason: Shortness Of Breath/wheezing Albuterol/Ipratropium (Duoneb 3.0-0.5 Mg/3 Ml) 3 ml NEB QIDRT [facility] Last Admin: 07/05/17 07:05 Dose: 3 ml Cetirizine HCl (Zyrtec) 10 mg PO DAILY [facility] Last Admin: 07/05/17 09:24 Dose: 10 mg Docusate Sodium (Colace) 100 mg PO BID PRN PRN Reason: Constipation Enoxaparin Sodium (Lovenox) 40 mg SUBCUT Q24H [facility] Last Admin: 07/04/17 18:17 Dose: 40 mg Levofloxacin/Dextrose 750 mg/ (Premix) 150 mls @ 100 mls/hr IV Q24H [facility] Last Admin: 07/04/17 18:20 Dose: 100 mls/hr Piperacillin/Tazobactam/ (Dextrose 3.375 gm/ Premix) 50 mls @ 100 mls/hr IV Q6H [facility] Influenza Virus Vaccine (Fluzone Quad [id number]) 60 mcg IM .ONCE ONE Stop: 07/06/17 10:01 Magnesium Hydroxide (Milk Of Magnesia) 30 ml PO Q12H PRN PRN Reason: Constipation Methylprednisolone Sodium Succinate (Solu-Medrol) 40 mg IVPUSH Q8H [facility] Last Admin: 07/05/17 01:27 Dose: 40 mg Mometasone Furoate (Nasonex [place]) 0 gm [place]ARY [place]NE BID [facility] Last Admin: 07/05/17 09:22 Dose: 1 spray Nicotine (Habitrol) 14 mg TRDERM DAILY [facility] Last Admin: 07/05/17 09:23 Dose: 14 mg Ondansetron HCl (Zofran) 4 mg IV Q4H PRN PRN Reason: Nausea/Vomiting Oxycodone HCl (Oxycodone) 5 mg PO Q4H PRN PRN Reason: Pain (moderate 4-6) Pneumococcal Polyvalent Vaccine (Pneumovax 23) 0.5 ml IM .ONCE ONE Stop: 07/06/17 11:01 Polyethylene Glycol (Miralax) 17 gm PO DAILY PRN PRN Reason: Constipation Sodium Chloride (Saline Flush) 10 ml FLUSH ASDIRECTED PRN PRN Reason: Keep Vein Open Last Admin: 07/04/17 18:15 Dose: 10 ml Zolpidem Tartrate (Ambien) 5 mg PO BEDTIME PRN PRN Reason: Sleep Last Admin: 07/04/17 21:27 Dose: 5 mg Discontinued Medications Sodium Chloride (Normal Saline) 1,000 mls @ 500 mls/hr IV ASDIRECTED [facility] Last Admin: 07/04/17 12:55 Dose: 500 mls/hr Sodium Chloride (Normal Saline) 75 mls @ 3 mls/sec IV ASDIRECTED [facility] Stop: 07/04/17 15:00 Last Admin: 07/04/17 14:36 Dose: 3 mls/sec Sodium Chloride (Normal Saline) 1,000 mls @ 250 mls/hr IV ASDIRECTED [facility] Last Admin: 07/04/17 16:02 Dose: 250 mls/hr Piperacillin Sod/Tazobactam (Sod 3.375 gm/ Sodium Chloride) 50 mls @ 100 mls/ hr IV Q6H [facility] Last Admin: 07/05/17 05:30 Dose: 100 mls/hr Sodium Chloride (Normal Saline) 1,000 mls @ 125 mls/hr IV ASDIRECTED [facility] Last Admin: 07/05/17 05:30 Dose: 125 mls/hr Influenza Virus Vaccine (Pharmacy To Dose - Influenza Vaccine) 1 each IM ONETIME ONE Stop: 07/04/17 21:57 Iopamidol (Isovue-300 (61%)) 100 ml IV . DIRECTED PRN PRN Reason: RADIOLOGY EXAM Stop: 07/04/17 15:00 Last Admin: 07/04/17 14:36 Dose: 100 ml Ondansetron HCl (Zofran) 4 mg IVPUSH ONETIME ONE Stop: 07/04/17 12:28 Last Admin: 07/04/17 12:55 Dose: 4 mg Pneumococcal Polyvalent Vaccine (Pneumovax 23) 0.5 ml IM .ONCE ONE Stop: 07/04/17 21:57 Last Admin: 07/05/17 01:37 Dose: Not Given Sodium Chloride (Saline Flush) 10 ml FLUSH ASDIRECTED PRN PRN Reason: Keep Vein Open Last Admin: 07/04/17 12:56 Dose: 10 ml Sodium Chloride (Saline Flush) 10 ml FLUSH ONETIME PRN PRN Reason: per radiology protocol Stop: 07/04/17 15:00 Last Admin: 07/04/17 14:34 Dose: 10 ml - Exam Quality Assessment: DVT Prophylaxis General: Alert, Oriented, Cooperative, Mild Distress Lungs: Decreased Breath Sounds, Rhonchi, Wheezing. No: Crackles, Rales, Rub, Stridor Cardiovascular: Regular Rate, Regular Rhythm, No Murmurs GI/Abdominal Exam: Normal Bowel Sounds, Soft, Non-Tender, No Organomegaly, No Distention Extremities: Non-Tender, No Pedal Edema Skin: Warm, Dry, Intact - Problem List Review Problem List Initiated/Reviewed/Updated: Yes - My Orders Last 24 Hours: My Active Orders 07/04/17 16:48 Resuscitation Status Routine 07/04/17 17:36 Patient Status [ADT] Routine Ambulate [RC] QID Height and Weight [RC] 0500 Intake and Output [RC] QSHIFT Notify Provider Consults [RC] ASDIRECTED Notify Provider Vital Signs [RC] ASDIRECTED Oxygen Therapy [RC] PRN Peripheral IV Care [RC] Q12H RT Aerosol Therapy [RC] ASDIRECTED Up to Chair [RC] QID VTE/DVT Education [RC] Per Unit Routine Vital Signs [RC] Q4H Acetaminophen [Tylenol] 650 mg PO Q4H PRN Albuterol [Proventil Neb Soln] 2.5 mg NEB Q4H PRN Cetirizine [ZyrTEC] 10 mg PO DAILY Docusate Sodium [Colace] 100 mg PO BID PRN Magnesium Hydroxide [Milk of Magnesia] 30 ml PO Q12H PRN Mometasone Furoate [Nasonex [place]] 0 gm MARY [place] BID Ondansetron [Zofran] 4 mg IV Q4H PRN Polyethylene Glycol 3350 [MiraLAX] 17 gm PO DAILY PRN Sodium Chloride 0.9% [Saline Flush] 10 ml FLUSH ASDIRECTED PRN Zolpidem [Ambien] 5 mg PO BEDTIME PRN oxyCODONE 5 mg PO Q4H PRN Peripheral IV Insertion Adult [OM.PC] Routine 07/04/17 18:00 Enoxaparin [Lovenox] 40 mg SUBCUT Q24H Levofloxacin/Dextrose 5%-Water [Levaquin in D5W 750 MG/150 ML] 750 mg Premix Bag 1 bag IV Q24H Nicotine [Habitrol] 14 mg TRDERM DAILY methylPREDNISolone Sod Succ [Solu-MEDROL] 40 mg IVPUSH Q8H 07/04/17 22:00 Albuterol/Ipratropium [DuoNeb 3.0-0.5 MG/3 ML] 3 ml NEB QIDRT 07/04/17 Lunch Regular Diet [DIET] 07/05/17 08:00 Consult to Physician [CONS] Routine 07/05/17 09:44 Convert IV to Saline Lock [OM.PC] Routine 07/05/17 12:00 Piperacillin/Tazobactam/Dext [Zosyn in Dextrose Iso-Osmotic 3.375 GM] 3.375 gm Premix Bag 1 bag IV Q6H 07/06/17 10:00 FLU Vacc [id number] 36Mos UP/PF [Fluzone Quad [id number]] 60 mcg IM .ONCE ONE 07/06/17 11:00 Pneumococcal Polyvalent-23 Vac [Pneumovax 23] 0.5 ml IM .ONCE ONE - Plan Plan:: ASSESSMENT AND PLAN LEFT LUNG PNEUMONIA-in the setting of prolonged intermittent respiratory tract infection over the past 2-1/2 months. He has received 2 courses of antibiotics during that time as well as a course of prednisone. CT scan shows evidence of underlying COPD. Improved since admission with less cough and shortness of breath -Blood and sputum cultures pending -Solu-Medrol 40 mg IV every 8 hours -Nebulized albuterol and duo nebs -Expanded IV antibiotic coverage; IV azithromycin and levofloxacin, pending culture results ENVIRONMENTAL ALLERGIES-history of nasal congestion over the past 2-1/2 months -Zyrtec 10 mg by mouth daily -Nasacort 2 sprays each nostril twice daily CHRONIC SINUS INFECTION-he's had ongoing difficulty with pressure and low-grade headaches, suspect infection secondary to ongoing congestion -Will likely require longer course of oral antibiotic therapy SKIN LESION LEFT UPPER CHEST-suspicious for skin cancer versus chronic infection -Consult Dr. Bermudez today for surgical opinion and probable resection NICOTINE [id number]-year smoking history, I did certified rehabilitation counselor him today concerning the importance of smoking cessation especially in light of findings of probable COPD on CT scan -Nicotine patch MAINTENANCE ISSUES -DVT prophylaxis; Lovenox 30 mg subcutaneous daily -GI prophylaxis; not indicated -White catheter; not indicated -Nutrition; regular diet -Nicotine dependence; patch as above CODE STATUS-FULL CODE ADMISSION STATUS-patient will be admitted to inpatient status, expect at least a 2 night hospital stay for evaluation and management of problems as outlined above. At the time of this admission I do not reasonably expected evaluation and management of this problem will require more than a 96 hour hospital stay. DISPOSITION-anticipate discharge to home after the hospital stay. PRIMARY CARE PROVIDER-currently does not have a primary care provider
--- NOTE | 2017-07-05 11:32 | PCM.CONS ---
H&P History of Present Illness - General Date of Service: 07/05/17 Admit Problem/Dx: Admission Diagnosis/Problem Admission Diagnosis/Problem Pneumonia Source of Information: Patient, Provider History Limitations: Reports: No Limitations - History of Present Illness Initial Comments - Free Text/Narative: This 62 year old white male has been admitted to treat pneumonia. I am asked to see him about a lesion on his left upper chest. He says this lesion has been there for years but it "flared up" about five days ago when he thinks he his pneumonia was getting bad. He says his chiropractor thinks it is related to an accident. It is non-tender. Onset of Symptoms: Reports: Gradual Duration of Symptoms: Reports: Chronic Location: Reports: Chest Quality: Reports: Other (No pain. ) Generalized Pain Score (Numeric/FACES): 6 - Related Data Allergies/Adverse Reactions: Allergies Allergy/AdvReac Type Severity Reaction Status Date / Time No Known Allergies Allergy Verified 07/04/17 11:26 Past Medical History HEENT History: Reports: Allergic Rhinitis, Macular Degeneration Gastrointestinal History: Reports: Other (See Below) - Past Surgical History HEENT Surgical History: Reports: Tonsillectomy Other GI Surgeries/Procedures: HEMORRHOIDS, ANAL FISTULA, CROHN'S Other Musculoskeletal Surgeries/Procedures:: Rhizotomy x 4 to back. Social & Family History - Family History HEENT: Reports: Cataract, Glaucoma, Hearing Impairment, Macular Degeneration Cardiac: Reports: Heart Failure GI: Reports: Other (See Below) Other GI Family History: Colon cancer Neurological: Reports: Dementia Psychiatric: Reports: Bipolar, Schizophrenia Endocrine/Metabolic: Reports: Diabetes, Type I, Diabetes, type II Hematologic: Reports: Other (See Below) Other Hematologic Family History: leukemia Oncologic: Reports: Leukemia, Skin - Tobacco Use Smoking Status *Q: Current Every Day Smoker Years of Tobacco use: 25 Packs/Tins Daily: 1 Used Tobacco, but Quit: No Second Hand Smoke Exposure: No - Caffeine Use Caffeine Use: Reports: Coffee - Recreational Drug Use Recreational Drug Use: No H&P Review of Systems - Review of Systems: Review Of Systems: See Below General: Reports: Fatigue HEENT: Reports: No Symptoms Pulmonary: Reports: Shortness of Breath, Wheezing, Sputum Cardiovascular: Reports: Lightheadedness Gastrointestinal: Reports: No Symptoms Genitourinary: Reports: No Symptoms Musculoskeletal: Reports: No Symptoms Skin: Reports: Other (Lesion on left upper chest. ) Psychiatric: Reports: No Symptoms Neurological: Reports: No Symptoms Hematologic/Lymphatic: Reports: No Symptoms Immunologic: Reports: No Symptoms Exam - Exam Exam: See Below - Vital Signs Vital Signs: Last Vital Signs Temp 96.1 F 07/05/17 11:00 Pulse 75 07/05/17 11:00 Resp 16 07/05/17 11:00 BP 101/63 07/05/17 11:00 Pulse Ox 95 07/05/17 11:00 Weight: 143 lb 1.6 oz - Exam General: Alert, Oriented, Cooperative Skin: Other (3 CM by 1.5 CM ulcerated skin lesion on right upper chest. ) Psychiatric: Alert, Normal Affect, Normal Mood - Patient Data Lab Results Last 24 hrs: Laboratory Results - last 24 hr 07/05/17 07/05/17 Range/Units 05:45 05:45 WBC 8.3 (4.5-11.0) K/uL RBC 4.19 L (4.30-5.90) M/uL Hgb 12.4 (12.0-15.0) g/dL Hct 38.3 L (40.0-54.0) % MCV 91 (80-98) fL MCH 30 (27-31) pg MCHC 32 (32-36) % Plt Count 334 (150-400) K/uL Neut % (Auto) 90 H (36-66) % Lymph % (Auto) 7 L (24-44) % Andrew % (Auto) 2 (2-6) % Eos % (Auto) 0 L (2-4) % Baso % (Auto) 0 (0-1) % Sodium 142 (140-148) mmol/L Potassium 4.3 (3.6-5.2) mmol/L Chloride 107 (100-108) mmol/L Carbon Dioxide 29 (21-32) mmol/L Anion Gap 5.8 (5.0-14.0) mmol/L BUN 9 (7-18) mg/dL Creatinine 0.7 L (0.8-1.3) mg/dL Est Cr Clr Drug Dosing 99.17 mL/min Estimated GFR (MDRD) > 60 (>60) Glucose 151 H (74-106) mg/dL Calcium 8.4 L (8.5-10.1) mg/dL Magnesium 2.0 (1.8-2.4) mg/dL Result Diagrams: 07/05/17 05:45 07/05/17 05:45 Consult PN Assessment/Plan (1) Chest skin lesion SNOMED Code(s): 69556505 Code(s): L98.9 - DISORDER OF THE SKIN AND SUBCUTANEOUS TISSUE, UNSPECIFIED Current Visit: Yes Assessment:: 3 X1.5 cm ulcerated skin lesion left upper chest. Pneumonia. Problem List Initiated/Reviewed/Updated: Yes Plan: Plan to excise his left upper chest skin lesion when he is over his pneumonia.
[2017-07-05] MEDS: Piperacillin/Tazobactam/Dext 3.375 GM in Premix Bag 1 BAG IV SCH ×2 (12:09→17:07)
[2017-07-05] MEDS: Benzocaine/Cetylpyridinium/Menthol Lozenge MUCMEM PRN ×2 (12:23→15:00)
[2017-07-05] MEDS: Levofloxacin/Dextrose 5%-Water 750 MG in Premix Bag 1 BAG IV SCH (17:47)
[2017-07-05] MEDS: Enoxaparin 40 MG/0.4 ML Syringe SUBCUT SCH (17:50)
[2017-07-06] MEDS: Piperacillin/Tazobactam/Dext 3.375 GM in Premix Bag 1 BAG IV SCH ×2 (00:41→06:13)
[2017-07-06] MEDS: methylPREDNISolone Sodium Succinate 40 MG/1 ML SDV IVPUSH SCH (01:45)
[2017-07-06] MEDS: Albuterol/Ipratropium 3.0-0.5 MG/3 ML Neb Soln NEB SCH (07:15)
[2017-07-06] MEDS: Mometasone Furoate Nasal Spray 17 GM Canister NAS SCH (08:43)
[2017-07-06] MEDS: Cetirizine 10 MG Tab PO SCH (08:45)
--- NOTE | 2017-07-06 09:24 | PCM.DCSUM1 ---
Discharge Summary - Hospital Course Brief History: 62 -year-old male with history of tobacco dependence recent bouts of pneumonia who presented with worsening shortness of breath, cough and subjective fevers. He was admitted for management of recurrent left lung pneumonia. - Discharge Data Discharge Date: 07/06/17 Discharge Disposition: Home, Self-Care 01 Condition: Fair - Discharge Diagnosis/Problem(s) (1) Left lower lobe pneumonia SNOMED Code(s): 843608409 ICD Code: J18.1 - LOBAR PNEUMONIA, UNSPECIFIED ORGANISM Status: Acute Current Visit: Yes Qualifiers: Pneumonia type: due to unspecified organism Qualified Code(s): J18.1 - Lobar pneumonia, unspecified organism (2) Chest skin lesion SNOMED Code(s): 60974816 ICD Code: L98.9 - DISORDER OF THE SKIN AND SUBCUTANEOUS TISSUE, UNSPECIFIED Status: Acute Current Visit: Yes (3) Tobacco dependence syndrome SNOMED Code(s): 46372206 ICD Code: F17.200 - NICOTINE DEPENDENCE, UNSPECIFIED, UNCOMPLICATED Status : Chronic Current Visit: Yes - Patient Summary/Data Consults: Consultations 07/05/17 08:00 Consult to Physician [CONS] Routine Consulting Provider: Shiva Bermudez Courtesy Call Completed to Consulting Physician: Yes Reason for Consult: Chronic skin lesion left upper chest Person Notified: [facility]DB Labs Pending at D/C: final results of blood cultures. 3 of the 4 are negative at discharge and one is positive for gram-positive cocci, likely contaminant. Hospital Course: Blair presented to the emergency room with worsening shortness of breath, cough and subjective fevers. Workup in the emergency room suggested recurrent left lung pneumonia and he was admitted to the hospital for further management. Because of recent antibiotic use he was started on levofloxacin and Pip/Tazo. He was also started on IV Solu-Medrol with some bronchospasm noted at the time of presentation. Over the next 24 hours symptomatically he improved a fair amount in his white blood cell count normalized. He has not had any fevers. He does not require supplemental oxygen at this time. Symptomatically he has been improving and has been able to get it out of bed and ambulate without significant symptoms. Subjective fevers have improved but not quite normalized. Shortness of breath cough are much better but not completely back to baseline. Over the second 24 hours there were no significant issues. Vital signs have been stable. He has not required any oxygen. He feels well enough to go home at this time. Suspect there is a component of infection as well as allergies making his breathing more difficult on top of his mild COPD noted on CT scan. Recommend levofloxacin for 5 more days to complete one week of treatment as well as Augmentin. The Augmentin will be continued for 2 weeks to cover the suspected chronic sinusitis that has been troubling him. He has been started on Nasonex to help with the seasonal allergy type symptoms as well. In addition to those medications he will be on prednisone 20 mg once daily for 3 more days before stopping. He will follow-up if symptoms do not continue to get better or if they get worse. Also noted during the hospital stay was a lesion on his chest. Dr Bermudez was consulted and recommended excision of this ulcerated area on his chest once his pneumonia has improved. Plan is for this to be done in 1-2 weeks as an outpatient and an appointment will be set up prior to discharge. - Patient Instructions Diet: Regular Diet as Tolerated Activity: As Tolerated Showering/Bathing: May Shower Notify Provider of: Fever, Increased Pain, Nausea and/or Vomiting Other/Special Instructions: 1. You were in the hospital for management of recurrent left lung pneumonia. This seems to be improving based on clinical information with antibiotic and steroid therapy. I recommend additional antibiotic therapy with levofloxacin and Augmentin. Levofloxacin will be taken once daily in the evening for 5 doses. Your next dose is due tonight. The Augmentin will be taken twice daily in the morning and the evening for a total of 14 days so there is overlap with the sinusitis as discussed below. Your next dose is due tonight. The prednisone is an anti-inflammatory that will help speed the healing process. You should take 20 mg once daily in the morning for 3 days starting tomorrow. 2. I suspect there is a component of environmental allergies worsening your respiratory status. I recommend that you use Nasonex with 1 spray in each nostril once daily to help reduce allergy symptoms. If this is insufficient to resolve your symptoms over the next couple of weeks you could consider taking an [id number] allergy medication once daily. Examples would include Zyrtec, Reva and Claritin. 3. We have provided information regarding tobacco cessation. If you have more concerns or questions you can find good information at [facility] or by talking to your regular doctor. 4. Please seek medical attention if you develop fever greater than 101 , have worsening of your shortness of breath or severe shortness of breath or if you develop chest pain/pressure. - Discharge Plan Prescriptions/Med Rec: Amoxicillin/Clavulanate K [Augmentin 875 MG] 1 tab PO BID #28 tablet Levofloxacin 750 mg PO QPM #5 tablet Mometasone Furoate [Nasonex [place]] 1 gm MARY ANNE DAILY #1 canister predniSONE [Prednisone] 20 mg PO DAILY #3 tablet Home Medications: Home Meds Amoxicillin/Clavulanate K [Augmentin 875 MG] 1 tab PO BID #28 tablet 07/06/17 [ Rx] Levofloxacin 750 mg PO QPM #5 tablet 07/06/17 [Rx] Mometasone Furoate [Nasonex [place]] 1 gm MARY ANNE DAILY #1 canister 07/06/17 [Rx] predniSONE [Prednisone] 20 mg PO DAILY #3 tablet 07/06/17 [Rx] Patient Handouts: Smoking Cessation, Tips for Success, [id number], Community- Acquired Pneumonia, Adult, Levofloxacin tablets, Amoxicillin; Clavulanic Acid extended-release tablets Referrals: PCP,None [Primary Care Provider] - (f/u with your primary care if symptoms do not continue to get better or if they get worse ) Shiva Bermudez MD [Physician] - (f/u in 1-2 weeks for removal of lesion from the chest. (Mondays work best)) - Discharge Summary/Plan Comment DC Time >30 min.: No (25) - Patient Data Vitals - Most Recent: Last Vital Signs Temp 35.8 C 07/05/17 22:29 Pulse 70 07/06/17 07:15 Resp 16 07/06/17 03:00 BP 114/57 L 07/05/17 22:29 Pulse Ox 94 L 07/05/17 22:29 Weight - Most Recent: 64.834 kg I&O - Last 24 hours: Intake & Output 07/05/17 07/06/17 07/06/17 22:59 06:59 14:59 Intake Total 1000 290 Output Total 800 300 Balance 200 290 -300 Med Orders - Current: Current Medications Acetaminophen (Tylenol) 650 mg PO Q4H PRN PRN Reason: Pain (Mild 1-3)/fever Albuterol (Proventil Neb Soln) 2.5 mg NEB Q4H PRN PRN Reason: Shortness Of Breath/wheezing Albuterol/Ipratropium (Duoneb 3.0-0.5 Mg/3 Ml) 3 ml NEB QIDRT [facility] Last Admin: 07/06/17 07:15 Dose: 3 ml Benzocaine/Menthol (Cepacol Sore Throat) 1 lozenge MUCMEM ASDIRECTED PRN PRN Reason: Cough Last Admin: 07/05/17 15:00 Dose: 1 lozenge Cetirizine HCl (Zyrtec) 10 mg PO DAILY [facility] Last Admin: 07/06/17 08:45 Dose: 10 mg Docusate Sodium (Colace) 100 mg PO BID PRN PRN Reason: Constipation Enoxaparin Sodium (Lovenox) 40 mg SUBCUT Q24H [facility] Last Admin: 07/05/17 17:50 Dose: 40 mg Levofloxacin/Dextrose 750 mg/ (Premix) 150 mls @ 100 mls/hr IV Q24H [facility] Last Admin: 07/05/17 17:47 Dose: 100 mls/hr Influenza Virus Vaccine (Fluzone Quad [id number]) 60 mcg IM .ONCE ONE Stop: 07/06/17 10:01 Magnesium Hydroxide (Milk Of Magnesia) 30 ml PO Q12H PRN PRN Reason: Constipation Mometasone Furoate (Nasonex [place]) 0 gm MARY ANNE BID [facility] Last Admin: 07/06/17 08:43 Dose: 1 spray Nicotine (Habitrol) 14 mg TRDERM DAILY [facility] Last Admin: 07/05/17 09:23 Dose: 14 mg Ondansetron HCl (Zofran) 4 mg IV Q4H PRN PRN Reason: Nausea/Vomiting Oxycodone HCl (Oxycodone) 5 mg PO Q4H PRN PRN Reason: Pain (moderate 4-6) Pneumococcal Polyvalent Vaccine (Pneumovax 23) 0.5 ml IM .ONCE ONE Stop: 07/06/17 11:01 Polyethylene Glycol (Miralax) 17 gm PO DAILY PRN PRN Reason: Constipation Prednisone (Prednisone) 40 mg PO ONETIME ONE Stop: 07/06/17 10:01 Sodium Chloride (Saline Flush) 10 ml FLUSH ASDIRECTED PRN PRN Reason: Keep Vein Open Last Admin: 07/04/17 18:15 Dose: 10 ml Zolpidem Tartrate (Ambien) 5 mg PO BEDTIME PRN PRN Reason: Sleep Last Admin: 07/04/17 21:27 Dose: 5 mg Discontinued Medications Sodium Chloride (Normal Saline) 1,000 mls @ 500 mls/hr IV ASDIRECTED [facility] Last Admin: 07/04/17 12:55 Dose: 500 mls/hr Sodium Chloride (Normal Saline) 75 mls @ 3 mls/sec IV ASDIRECTED [facility] Stop: 07/04/17 15:00 Last Admin: 07/04/17 14:36 Dose: 3 mls/sec Sodium Chloride (Normal Saline) 1,000 mls @ 250 mls/hr IV ASDIRECTED [facility] Last Admin: 07/04/17 16:02 Dose: 250 mls/hr Piperacillin Sod/Tazobactam (Sod 3.375 gm/ Sodium Chloride) 50 mls @ 100 mls/ hr IV Q6H [facility] Last Admin: 07/05/17 05:30 Dose: 100 mls/hr Sodium Chloride (Normal Saline) 1,000 mls @ 125 mls/hr IV ASDIRECTED [facility] Last Admin: 07/05/17 05:30 Dose: 125 mls/hr Piperacillin/Tazobactam/ (Dextrose 3.375 gm/ Premix) 50 mls @ 100 mls/hr IV Q6H [facility] Last Admin: 07/06/17 06:13 Dose: 100 mls/hr Influenza Virus Vaccine (Pharmacy To Dose - Influenza Vaccine) 1 each IM ONETIME ONE Stop: 07/04/17 21:57 Iopamidol (Isovue-300 (61%)) 100 ml IV . DIRECTED PRN PRN Reason: RADIOLOGY EXAM Stop: 07/04/17 15:00 Last Admin: 07/04/17 14:36 Dose: 100 ml Methylprednisolone Sodium Succinate (Solu-Medrol) 40 mg IVPUSH Q8H [facility] Last Admin: 07/06/17 01:45 Dose: 40 mg Ondansetron HCl (Zofran) 4 mg IVPUSH ONETIME ONE Stop: 07/04/17 12:28 Last Admin: 07/04/17 12:55 Dose: 4 mg Pneumococcal Polyvalent Vaccine (Pneumovax 23) 0.5 ml IM .ONCE ONE Stop: 07/04/17 21:57 Last Admin: 07/05/17 01:37 Dose: Not Given Sodium Chloride (Saline Flush) 10 ml FLUSH ASDIRECTED PRN PRN Reason: Keep Vein Open Last Admin: 07/04/17 12:56 Dose: 10 ml Sodium Chloride (Saline Flush) 10 ml FLUSH ONETIME PRN PRN Reason: per radiology protocol Stop: 07/04/17 15:00 Last Admin: 07/04/17 14:34 Dose: 10 ml *Q Meaningful Use (DIS) - VTE *Q VTE Criteria *Q: - Stroke *Q Stroke Criteria *Q: - AMI *Q AMI Criteria *Q:
[2017-07-06] MEDS: Nicotine 14 MG/24 Hr Patch TRDERM SCH (09:50)
[2017-07-06] MEDS ORDERED: Pneumococcal Polyvalent-23 Vaccine 0.5 ML SDV IM ONE (10:00)
[2017-07-06] MEDS ORDERED: FLU Vacc QS 2017-18 (36mos UP)/PF 60 MCG/0.5 ML Syringe IM ONE (10:00)
[2017-07-06] MEDS ORDERED: predniSONE 20 MG Tab PO ONE (10:00)
== END 2017-07-06 10:35 | disposition home or self-care (01) | DRG 139 ==
LOC: JP.ED 10:58 → JP.MS 16:47
PROVIDERS: ADMIT Hospitalist; ATTEND Internal Medicine
DX: J18.1 Lobar pneumonia, unspecified organism (principal); J44.9 Chronic obstructive pulmonary disease, unspecified; J32.9 Chronic sinusitis, unspecified; F17.210 Nicotine dependence, cigarettes, uncomplicated; Z79.2 Long term (current) use of antibiotics; L98.499 Non-pressure chronic ulcer of skin of other sites with unspecified severity; Z23 Encounter for immunization; J30.9 Allergic rhinitis, unspecified; Z79.52 Long term (current) use of systemic steroids; H35.30 Unspecified macular degeneration; Z91.09 Other allergy status, other than to drugs and biological substances
CPT/HCPCS: 36415; 71020; 71020-26; 71260; 80048; 80053; 81001; 83735; 83880; 84443; 84484; 85025; 85651; 86140; 87015; 87040; 87070; 87086; 87102; 87116; 87205; 87206; 87804; 90686; 90732; 93005; 94640; 96361; 96374; 99285-25; A9270-GY; J1650; J1956; J2405; J2543; J2920; J7030; J7040; J7050; J7620; Q9967

== ENCOUNTER 2017-09-14 06:34 | Day surgery (SDC) | payer BC ==
[~2017-09-14 06:34] MED LIST: Sodium Chloride 0.9% 1,000 ML IV SCH
[2017-09-14] MEDS ORDERED: Bupivacaine 0.5% 50 ML MDV ONE (06:35)
[2017-09-14] MEDS ORDERED: Lidocaine 1% with EPINEPHrine 1:100,000 50 ML MDV ONE (06:35)
[2017-09-14] MEDS ORDERED: ceFAZolin 2 GM in Premix Bag 1 BAG IV ONE (07:15)
[2017-09-14] MEDS ORDERED: fentaNYL 100 MCG/2 ML SDV ONE (07:23)
[2017-09-14] MEDS ORDERED: Midazolam 1 MG/ML 2 ML SDV ONE (07:24)
[2017-09-14] MEDS ORDERED: Propofol 200 MG/20 ML SDV ONE (07:24)
[2017-09-14] MEDS ORDERED: Ketorolac 60 MG/2 ML SDV ONE (08:27)
[2017-09-14] MEDS ORDERED: Acetaminophen/HYDROcodone 325-5 MG Tab PO PRN (09:20)
--- NOTE | 2017-09-15 09:17 | OR ---
CORRECTED COPY DATE OF PROCEDURE: 09/14/2017 PROCEDURE: Excision of basal cell carcinoma, left chest (10.2 cm x 3.2 cm, full thickness). COMPLICATIONS: None. ASSISTANTS: None. ANESTHESIA: MAC/local. PREOPERATIVE DIAGNOSIS: Basal cell carcinoma. POSTOPERATIVE DIAGNOSIS: Basal cell carcinoma. RISKS: Risks, benefits, alternatives, and limitations including, but not limited to infection, bleeding, and chronic wound formation were explained to the patient who wished to proceed. PROCEDURE IN DETAIL: The patient was placed in supine position. Looking at this, this had an irregular architecture. Therefore, the best way would be to create an excision line running superior to inferior as opposed to the medial collateral form. This allowed a significantly smaller excision comparatively. This was prepped and draped and marked with a marker. Anesthetized with 1% lidocaine. An elliptical incision in 3:1 ratio was then used with a 15 blade and electrocautery was used to carry it down full thickness. Prior to this being removed, a single stitch was placed. Double stitch was placed lateral. The wound was thoroughly irrigated. This was then approximated with 3-0 Vicryl sutures. This was then completely closed with 3-0 Prolene in a running fashion. This was then reinforced with 5 horizontal mattress sutures using 2-0 nylon. Dressings were applied. The patient tolerated the procedure well. Jason William MD /[id number]
== END 2017-09-14 09:58 | disposition home or self-care (01) ==
LOC: JP.SDS 06:34
PROVIDERS: ATTEND Surgery
DX: C44.519 Basal cell carcinoma of skin of other part of trunk (principal); Z79.899 Other long term (current) drug therapy; Z91.048 Other nonmedicinal substance allergy status; F17.210 Nicotine dependence, cigarettes, uncomplicated
CPT/HCPCS: 11606; 12034; 88305; A9270; J0690; J1885; J2250; J2704; J3010; J7040; J7030

== ENCOUNTER 2018-12-12 09:29 | Day surgery (SDC) | payer BC ==
[2018-12-12] MEDS ORDERED: Lactated Ringers 1,000 ML IV SCH (10:00)
[2018-12-12] MEDS ORDERED: Propofol 200 MG/20 ML SDV ONE (10:48)
[2018-12-12] MEDS ORDERED: fentaNYL 100 MCG/2 ML SDV ONE (10:49)
[2018-12-12] MEDS ORDERED: Midazolam 1 MG/ML 2 ML SDV ONE (10:49)
[2018-12-12] MEDS ORDERED: Iopamidol 612 MG/ML 100 ML Bottle IV PRN (13:00)
[2018-12-12] MEDS ORDERED: Sodium Chloride 0.9% 10 ML Syringe FLUSH PRN (13:00)
[2018-12-12] MEDS ORDERED: Sodium Chloride 0.9% 75 ML IV ONE (13:00)
--- NOTE | 2018-12-13 07:54 | OR ---
DATE OF PROCEDURE: 12/12/2018 PREOPERATIVE DIAGNOSIS: Colon cancer screening. POSTOPERATIVE DIAGNOSIS: Diverticulosis. PROCEDURE: Colonoscopy to the cecum. SURGEON: Shiva Bermudez MD ANESTHESIA: IV anesthesia with monitored anesthesia care. INDICATION: This 63-year-old white male is referred for a colonoscopy for colon cancer screening. He says his last colonoscopic exam was done decades ago. I counseled him for the procedure, including risks and alternatives. He gave his informed consent to proceed. DESCRIPTION OF PROCEDURE: The patient was placed in the left lateral decubitus position. IV anesthesia was administered by the Anesthesia Service. Time-out was held. A rectal exam was performed, which was unremarkable. The flexible video Olympus colonoscope was introduced through his anus, up to his rectum, out his colon, all the way to the cecum. En route, we saw a few scattered left-sided diverticula. There was no bleeding or inflammation associated with them. Once the cecum was reached, the scope was slowly withdrawn examining the mucosa throughout. No additional mucosal abnormalities were noted. The scope was retroflexed in the rectum with the distal rectum appearing unremarkable. The scope was straightened and removed. He tolerated the procedure well. Shiva Bermudez MD /[id number]
--- NOTE | 2018-12-14 10:26 | CRLCT ---
Final Report: INDICATION: Follow up pulmonary nodules. COMPARISON: [address] TECHNIQUE: Noncontrast images hyoid to upper abdomen. FINDINGS: Heterogeneous thyroid with low attenuation globular appearance within the center of the left slightly expanded lobe. No pathologic adenopathy within the limitations of a noncontrast CT. Mild coronary artery atherosclerotic calcification. No hiatus hernia. Gallstone dependently within the gallbladder. No other finding of significance in the upper abdomen. Subpleural and centrilobular emphysematous blebs. Scarring and architectural distortion posterior lower lobes. Benign 4 mm nodule along the anterior inferior right upper lobe just above the minor fissure. No consolidation. No other nodule. IMPRESSION: Emphysema has advanced versus comparison. No significant pulmonary nodules. Prior multifocal pneumonia resolved. Chronic thyroid goiter. Cholelithiasis. Please note that all CT scans at this facility use dose modulation, iterative reconstruction, and/or weight-based dosing when appropriate to reduce radiation dose to as low as reasonably achievable. Dictated by Rashad Oliver MD @ Dec 13 2018 2:47PM Signed by: Rashad Oliver MD @12/13/2018 2:52:51 PM (Electronic Signature) MTDD
== END 2018-12-12 14:21 | disposition home or self-care (01) ==
LOC: JP.SDS 09:29
PROVIDERS: ATTEND Surgery
DX: Z12.11 Encounter for screening for malignant neoplasm of colon (principal); K57.30 Diverticulosis of large intestine without perforation or abscess without bleeding; Z87.891 Personal history of nicotine dependence; Z91.048 Other nonmedicinal substance allergy status
CPT/HCPCS: 36415; 45378; 71260; 82565; J2250; J2704; J3010; J7030; J7120; Q9967

== ENCOUNTER 2023-10-18 05:47 | Day surgery (SDC) | payer MEDICARE ==
[2023-10-18] MEDS: Lactated Ringers 1,000 ML IV SCH (06:28)
[2023-10-18 06:29] LABS: HEMOGLOBIN 13.7 g/dL (12.9-16.9); MEAN CORPUSCULAR HEMOGLOBIN 28.8 pg (31.6-35.5); MEAN CORPUSCULAR HGB CONC 32.6 g/dL (31.6-35.5); MEAN CORPUSCULAR VOLUME 88.4 fL (81.4-99.0); RED BLOOD CELL COUNT 4.75 M/uL (4.14-5.76); WHITE BLOOD CELL COUNT,WBC 4.9 K/uL (3.2-11.0)
[2023-10-18 06:44] LABS: ALANINE AMINOTRANSFERASE,ALT 24 U/L (12-78); ALBUMIN 3.4 g/dL (3.4-5.0); ALKALINE PHOSPHATASE 74 U/L (46-116); ANION GAP 6.7 mmol/L (5.0-14.0); ASPARTATE AMNIOTRANSFERASE,AST 23 U/L (15-37); BILIRUBIN TOTAL 0.5 mg/dL (0.2-1.0); BLOOD UREA NITROGEN,BUN 15 mg/dL (7-18); CALCIUM 8.2 mg/dL (8.5-10.1); CARBON DIOXIDE,CO2 28 mmol/L (21-32); CHLORIDE,CL 105 mmol/L (100-108); CREATININE 0.9 mg/dL (0.8-1.3); ESTIMATED GFR 92 mL/min (>60); GLUCOSE RANDOM 90 mg/dL (74-106); POTASSIUM,K 4.2 mmol/L (3.6-5.2); PROTEIN TOTAL,TP 6.8 g/dL (6.4-8.2); SODIUM,NA 140 mmol/L (140-148)
[2023-10-18] MEDS: Nozin Nasal Sanitizer NASBOTH ONE (06:48)
[2023-10-18] MEDS ORDERED: Bupivacaine 0.5% 30 ML SDV ONE ×2 (06:54→07:21)
[2023-10-18] MEDS ORDERED: fentaNYL 100 MCG/2 ML SDV ONE (07:19)
[2023-10-18] MEDS ORDERED: Propofol 200 MG/20 ML SDV ONE ×2 (07:19→08:41)
[2023-10-18] MEDS ORDERED: Midazolam 1 MG/ML 2 ML SDV ONE (07:19)
[2023-10-18] MEDS: ceFAZolin 1 GM in Premix Bag 1 BAG IV ONE (07:55)
[2023-10-18] MEDS ORDERED: Labetalol 20 MG/4 ML Syringe ONE (08:31)
[2023-10-18] MEDS ORDERED: Lidocaine 2% 100 MG/5 ML Syringe ONE (08:36)
[2023-10-18] MEDS: Aspirin 81 MG Tab.Chew PO ONE (10:14)
[2023-10-18 10:19] LABS: BASOPHILS ABSOLUTE AUTO 0.05 K/uL (0.00-0.10); EOSINOPHILS ABSOLUTE AUTO 0.16 K/uL (0.00-0.40); EOSINOPHILS PERCENT AUTO 3.2 % (0.0-5.4); HEMATOCRIT 39.8 % (38.4-49.7); HEMOGLOBIN 12.6 g/dL (12.9-16.9); IMMATURE GRAN PERCENT AUTO 0.2 % (0.0-0.7); LYMPHOCYTES ABSOLUTE AUTO 1.55 K/uL (0.8-3.3); LYMPHOCYTES PERCENT AUTO 31.3 % (11.4-47.7); MEAN CORPUSCULAR HEMOGLOBIN 28.6 pg (31.6-35.5); MEAN CORPUSCULAR HGB CONC 31.7 g/dL (31.6-35.5); MEAN CORPUSCULAR VOLUME 90.5 fL (81.4-99.0); MONOCYTES ABSOLUTE AUTO 0.47 K/uL (0.20-0.90); MONOCYTES PERCENT AUTO 9.5 % (3.3-12.6); NEUTROPHILS ABSOLUTE AUTO 2.72 K/uL (1.0-7.6); NEUTROPHILS PERCENT AUTO 54.8 % (40.0-78.1); PLATELET COUNT,PLT 249 K/uL (130-375)
[2023-10-18 10:20] LABS: BASE EXCESS VENOUS 1.5 mm/L; BICARBONATE,VENOUS 28.6 mmol/L; CARBOXYHEMOGLOBIN 1.4 % (0.0-1.6); METHEMOGLOBIN 0.9 %; O2 SATURATION VENOUS 39.2; OXYHEMOGLOBIN 38.3 %; PCO2 VENOUS 58.8 mm/Hg; PH,VENOUS 7.308 (7.350-7.450); TOTAL HEMOGLOBIN 13.2 g/dL (13.5-18.0)
[2023-10-18 10:23] LABS: IMMATURE GRAN ABSOLUTE AUTO 0.01 K/uL (0.00-0.23); PO2 VENOUS 26.3 mm/Hg
[2023-10-18 10:51] LABS: BLOOD UREA NITROGEN,BUN 14 mg/dL (7-18); CALCIUM 7.7 mg/dL (8.5-10.1); CARBON DIOXIDE,CO2 31 mmol/L (21-32); CHLORIDE,CL 107 mmol/L (100-108); CREATININE 0.8 mg/dL (0.8-1.3); EST CRCL DRUG DOSING (CG) 89.46 mL/min; ESTIMATED GFR 96 mL/min (>60); GLUCOSE RANDOM 87 mg/dL (74-106); PHOSPHORUS 3.1 mg/dL (2.5-4.9); POTASSIUM,K 4.6 mmol/L (3.6-5.2); SODIUM,NA 141 mmol/L (140-148)
[2023-10-18 10:53] LABS: TROPONIN I HIGH SENSITIVITY < 4.0 pg/mL (<=60.3)
[2023-10-18] MEDS: Acetaminophen/HYDROcodone 325-5 MG Tab PO PRN (12:21)
[2023-10-18] MEDS ORDERED: Morphine 2 MG/ML SYRINGE IVPUSH PRN (16:14)
[2023-10-18] MEDS ORDERED: Sodium Chloride 0.9% 1,000 ML IV SCH (16:15)
[2023-10-18] MEDS: Potassium Chloride 10 MEQ Cap.ER PO SCH (17:04)
[2023-10-18] MEDS: Formoterol/Mometasone 200-5 MCG 8.8 GM Inhaler IH SCH (20:03)
[2023-10-18] MEDS: Melatonin 3 MG Tab PO SCH (20:04)
[2023-10-18] MEDS: Nozin Nasal Sanitizer NASBOTH SCH (20:59)
[2023-10-18] MEDS ORDERED: Non-Formulary Medication 1 Each (Fluticasone Propion/Salmeterol [Advair 250-50 Diskus] 1 E IH SCH (21:00)
[2023-10-18] MEDS: traMADol 50 MG Tab PO PRN (23:54)
[2023-10-19] MEDS: DULoxetine 20 MG Cap PO SCH (08:07)
[2023-10-19] MEDS: Aspirin 81 MG Tab.Chew PO SCH (08:07)
[2023-10-19] MEDS: Magnesium Oxide 400 MG Tab PO SCH (08:08)
[2023-10-19] MEDS: Zinc Sulfate 220 MG Cap PO SCH (08:08)
== END 2023-10-19 10:35 | disposition home or self-care (01) ==
LOC: JP.SDS 05:47 → JP.MS 14:15 → JP.SDS 10-19 10:35
PROVIDERS: ATTEND Specialist
DX: M75.42 Impingement syndrome of left shoulder (principal); I49.9 Cardiac arrhythmia, unspecified; M19.012 Primary osteoarthritis, left shoulder; E03.9 Hypothyroidism, unspecified; E78.00 Pure hypercholesterolemia, unspecified; J43.9 Emphysema, unspecified; E78.5 Hyperlipidemia, unspecified; Z87.891 Personal history of nicotine dependence; Z91.048 Other nonmedicinal substance allergy status; Z79.899 Other long term (current) drug therapy
CPT/HCPCS: 29824; 29826; 36415; 80053; 80069; 82803; 83880; 84484; 85025; 85027; 93005; A9270; C1713; J0665; J0690; J1920; J2250; J2704; J3010; J7120; 99222